=== PATIENT | female | born 1950 | race Caucasian/White ===

== ENCOUNTER → 2019-04-11 | Outpatient (CLI) | payer MEDICARE, OTHER ==
[~2019-04-11] MED LIST: BIOTIN PO; CALCIUM CITRAT1 EAC3 PO; LEVAQUIN500 MG PO; LISINOPRIL10 MG PO; MULTI-VITAMIN1 EACH PO; OCUVITE TABLET1 EAC1 PO; OMEPRAZOLE40 MG PO
--- NOTE | 2019-04-11 11:05 | Diagnostic Imaging Report ---
EXAM: CT Abdomen and Pelvis WITHOUT intravenous contrast INDICATION: Renal calculus COMPARISON: None. TECHNIQUE: Abdomen and pelvis were scanned utilizing a multidetector helical scanner from the lung base to the pubic symphysis without administration of IV contrast. Coronal and sagittal reformations were obtained. IV CONTRAST: None ORAL CONTRAST: None COMPLICATIONS: None RADIATION DOSE: Total DLP: 478.8 mGy*cm Dose modulation, iterative reconstruction, and/or weight based adjustment of the mA/kV was utilized to reduce the radiation dose to as low as reasonably achievable. FINDINGS: LOWER THORAX: Lingular calcified granuloma. Minimal bibasilar dependent subsegmental atelectasis. HEPATOBILIARY: No focal liver lesion. Status post cholecystectomy. SPLEEN: No splenomegaly. PANCREAS: No focal masses or ductal dilatation. ADRENALS: No adrenal nodules. KIDNEYS/URETERS: No hydronephrosis, stones, or solid mass lesions. PELVIC ORGANS/BLADDER: Hysterectomy. PERITONEUM / RETROPERITONEUM: No free air or fluid. LYMPH NODES: No lymphadenopathy. VESSELS: Minimal scattered atherosclerotic calcifications of the nonaneurysmal abdominal aorta and major branches. GI TRACT: Status post gastric bypass. No abnormal bowel thickening. No bowel obstruction. BONES AND SOFT TISSUES: No acute osseous injury. No suspicious lytic or blastic lesions. Mild diffuse osteopenia. Degenerative changes of the visualized spine. Grade 1 retrolisthesis at T12-L1, L1-2 and L2-3. Grade 1 anterolisthesis at L4-5. Status post mesh repair of ventral hernia. IMPRESSION: No acute findings in the abdomen or pelvis. Specifically, no renal calculi or hydronephrosis. Signed by: Rigoberto Fitzpatrick MD on 04/11/2019 11:01 AM
== END ==
LOC: CT 10:05
PROVIDERS: ATTEND Urology
DX: N20.0 Calculus of kidney (principal)
CPT/HCPCS: 74176

== ENCOUNTER 2019-04-12 10:30 | Inpatient (IN) | payer MEDICARE, OTHER ==
[2019-04-11 09:52] LABS: BASOPHILS # (AUTO) 0.1 (0.0-0.1); BASOPHILS % 0.9 % (0.0-1.0); EOSINOPHILS # (AUTO) 0.1 (0.0-0.4); EOSINOPHILS % 2.6 % (0.0-6.0); HEMATOCRIT 39.6 % (34.2-44.1); HEMOGLOBIN 12.8 g/dL (12.0-16.0); LYMPHOCYTES # (AUTO) 1.4 (1.0-3.2); LYMPHOCYTES % 25.8 % (18.0-39.1); MEAN CORPUSCULAR HEMOGLOBIN 29.8 pg (28-32); MEAN CORPUSCULAR HGB CONC 32.3 g/dL (31-35); MEAN CORPUSCULAR VOLUME 92.3 fL (81-99); MONOCYTES # (AUTO) 0.4 (0.2-0.8); MONOCYTES % 8.2 % (4.4-11.3); NEUTROPHILS # (AUTO) 3.3 (2.1-6.9); NEUTROPHILS % 62.3 % (38.7-80.0); PLATELET COUNT 185 x10e3/uL (140-360); RED BLOOD COUNT 4.29 x10e6/uL (3.6-5.1); RED CELL DISTRIBUTION WIDTH 13.7 % (11.7-14.4)
[2019-04-11 10:08] LABS: ANION GAP 11.8 mmol/L (8-16); BLOOD UREA NITROGEN 14 mg/dL (7-26); BUN/CREATININE RATIO 20 (6-25); CALCIUM 9.4 mg/dL (8.4-10.2); CARBON DIOXIDE 26 mmol/L (22-29); CHLORIDE 110 mmol/L (98-107); CREATININE, SERUM 0.69 mg/dL (0.57-1.11); EST GLOMERULAR FILTRATION RATE > 60 ML/MIN (60-); GLUCOSE 70 mg/dL (74-118); POTASSIUM 3.8 mmol/L (3.5-5.1); SODIUM 144 mmol/L (136-145)
--- NOTE | 2019-04-11 10:16 | Diagnostic Imaging Report ---
EXAMINATION: CHEST 2 VIEWS INDICATION: Pre-operative COMPARISON: None FINDINGS: LINES/TUBES:None LUNGS:The lungs are well-inflated. No focal consolidation or pulmonary edema. PLEURA:No pleural effusion or pneumothorax. MEDIASTINUM:The cardiomediastinal silhouette appears normal in size and shape. BONES/SOFT TISSUES:No acute osseous injury. ABDOMEN:No free air under the diaphragm. IMPRESSION: No focal pneumonia or pulmonary edema Signed by: Rigoberto Fitzpatrick MD on 04/11/2019 10:14 AM
[~2019-04-12] VITALS: Ht 162.6 cm; Wt 76.7 kg
[2019-04-12] MEDS ORDERED: GENTAMICIN 80MG/NS 100 ML 200 ML IV ONE (10:46)
[2019-04-12] MEDS ORDERED: PIPER-TAZ 3.375 GM 50 ML ONE (10:46)
[2019-04-12] MEDS ORDERED: CLINDAMYCIN 300MG 50 ML IV ONE (10:47)
[2019-04-12] MEDS ORDERED: IOPAMIDOL 300MG/ML 50ML INFUS..BTL IV ONE (10:48)
[2019-04-12] MEDS ORDERED: B&O 60MG R/S 60 MG SUPP PR ONE (10:48)
[2019-04-12] MEDS ORDERED: LISINOPRIL10 MG PO (10:51)
[2019-04-12] MEDS ORDERED: OMEPRAZOLE40 MG PO (10:51)
[2019-04-12] MEDS ORDERED: LEVAQUIN500 MG PO (10:52)
[2019-04-12] MEDS ORDERED: BACITRACIN 50,000 UNIT VIAL ONE (10:57)
[2019-04-12] MEDS ORDERED: BUPIVACAINE 0.5%/EPI 30 ML SDV INJ ONE (10:57)
[2019-04-12] MEDS ORDERED: INDIGOTINDISULFONATE SODIUM 8 MG/ML AMP IJ ONE (10:58)
--- OUTSIDE RECORDS SUMMARY | 2019-04-12 11:08 | XMS REPORT ---
Author Author [facility] Address Unknown Phone Unavailable Care Team Providers Care Manager Card Name Role Phone MARGARETH MELISSA Unavailable Unavailable Problems This patient has no known problems. Allergies, Adverse Reactions, Alerts This patient has no known allergies or adverse reactions. Medications This patient has no known medications. Results Test Description Test Time Test Comments Text Results Atomic Results Result Comments CT ABDOMEN/PELVIS WO 2019-04-11 10:56:00 [place] [address] Patient Name: BERHANE NORWOOD MR #: [id number] : 1950 Age/Sex: 68/F Req #: [id number] Adm Physician: Ordered by: MARGARETH MELISSA MD Report #: [id number] Location: CT Room/Bed: Procedure: [id number] CT/CT ABDOMEN/PELVIS WO Exam Date: Exam Time: REPORT STATUS: Signed EXAM: CT Abdomen and Pelvis WITHOUT intravenous contrast IND ICATION: Renal calculus COMPARISON: None. TECHNIQUE: Abdomen and pelvis were scanned utilizing a multidetector helical scanner from the lung base to the pubic symphysis without administration of IV contrast. Coronal and sagittal reformations were obtained. IV CONTRAST: None ORAL CONTRAST: None COMPLICATIONS: None RADIATION DOSE: Total DLP: 478.8 mGy*cm Dose modulation, iterative reconstruction, and/or weight based adjustment of the mA/kV was utilized to reduce the radiation dose to as low as reasonably achievable. FINDINGS: LOWER THORAX: Lingular calcified granuloma. Minimal bibasilar dependent subsegmental atelectasis. HEPATOBILIARY: No focal liver lesion. Status post cholecystectomy. SPLEEN: No splenomegaly. PANCREAS: No focal masses or ductal dilatation. ADRENALS: No adrenal nodules. KIDNEYS/URETERS: No hydronephrosis, stones, or solid mass lesions. PELVIC ORGANS/BLADDER: Hysterectomy. PERITONEUM / RETROPERITONEUM: No free air or fluid. LYMPH NODES: No lymphadenopathy. VESSELS: Minimal scattered atherosclerotic calcifications of the nonaneurysmal abdominal aorta and major branches. GI TRACT: Status post gastric bypass. No abnormal bowel thickening. No bowel obstruction. BONES AND SOFT TISSUES: No acute osseous injury. No suspicious lytic or blastic lesions. Mild diffuse osteopenia. Degenerative changes of the visualized spine. Grade 1 retrolisthesis at T12-L1, L1-2 and L2-3. Grade 1 anterolisthesis at L4-5. Status post mesh repair of ventral hernia. IMPRESSION: No acute findings in the abdomen or pelvis. Specifically, no renal calculi or hydronephrosis. Signed by: Anibal Calzada MD on 04/11/2019 11:01 AM Dictated By: ANIBAL CALZADA MD 110 Transcribed By: DANA on 04/11/19 110 COPY TO: MARGARETH MELISSA MD CHEST 2 VIEWS 2019-04-11 10:06:00 [place] [address] Patient Name: BERHANE NORWOOD MR #: [id number] : 1950 Age/Sex: 68/F Req #: [id number] Adm Physician: Ordered by: MARAGRETH MELISSA MD Report #: [id number] Location: OR Room/Bed: Procedure: [id number] DX/CHEST 2 VIEWS Exam Date: 04/11/19 Exam Time: 934 REPORT STATUS: Signed EXAMINATION: CHEST 2 VIEWS INDICATION: Pre-operative COMPARISON: None FINDINGS: LINES/TUBES:None LUNGS:The lungs are well-inflated. No focal consolidation or pulmonary edema. PLEURA:No pleural effusion or pneumothorax. MEDIASTINUM:The cardiomediastinal silhouette appears normal in size and shape. BONES/SOFT TISSUES:No acute osseous injury. ABDOMEN:No free air under the diaphragm. IMPRESSION: No focal pneumonia or pulmonary edema Signed by: Anibal Calzada MD on 04/11/2019 10:14 AM Dictated By: ANIBAL CALZADA MD [id number] Transcribed By: JASON Campbell on 04/11/19 1014 COPY TO: MARGARETH MELISSA MD
[2019-04-12] MEDS ORDERED: SILVER SULFADIAZINE 50GM CREAM ONE (11:56)
[2019-04-12] MEDS ORDERED: NALOXONE HCL INJ 0.4 MG/ML AMP IV PRN (14:30)
[2019-04-12] MEDS ORDERED: MORPHINE SULFATE 1 MG/ML 30ML PCA IV PRN (14:30)
[2019-04-12] MEDS ORDERED: ONDANSETRON HCL INJ 2MG/ML 2ML 2 MG/ML VIAL IV PRN (14:30)
[2019-04-12] MEDS ORDERED: ACETAMINOPHEN/CODEINE 300MG - 30MG TAB PO PRN (14:30)
[2019-04-12] MEDS ORDERED: METOCLOPRAMIDE HCL 10 MG/2ML VIAL ONE (15:03)
[2019-04-12] MEDS ORDERED: FENTANYL CITRATE/PF 100MCG/2 ML INJ ONE ×2 (15:27→16:04)
[2019-04-12] MEDS ORDERED: MIDAZOLAM HCL 2 MG/2 ML VIAL ONE (16:04)
--- NOTE | 2019-04-12 17:03 | NUR ---
PT ARRIVED TO ROOM 113. FAMILY AT BEDSIDE. PT AWAKE, BUT DROUSY. VITAL SIGNS STABLE. WILL CONTINUE TO MONITOR.
[2019-04-12] MEDS ORDERED: ACETAMINOPHEN 1000 MG/100 ML IV PRN (18:00)
[2019-04-12] MEDS ORDERED: SUCCINYLCHOLINE CHLORIDE 20 MG/ML 10ML VIAL ONE (18:10)
[2019-04-12] MEDS ORDERED: ROCURONIUM BROMIDE 10 MG/ML 5ML VIAL ONE (18:10)
[2019-04-12] MEDS ORDERED: ONDANSETRON HCL INJ 2MG/ML 2ML 2 MG/ML VIAL ONE (18:10)
[2019-04-12] MEDS ORDERED: DEXAMETHASONE SOD PHOS INJ 4 MG/ML VIAL ONE (18:10)
[2019-04-12] MEDS ORDERED: SEVOFLURANE INHAL SOLN 250 ML PEN BTL ONE (18:10)
[2019-04-12] MEDS ORDERED: LIDOCAINE HCL 2% JELLY 5 ML TUBE ONE (18:10)
[2019-04-12] MEDS ORDERED: PROPOFOL IV EMULSION 10 MG/ML 20 ML VIAL ONE (18:10)
[2019-04-12] MEDS ORDERED: LIDOCAINE HCL 2% LOCAL INJ 5 ML SDV VIAL INJ ONE (18:10)
--- NOTE | 2019-04-12 19:25 | NUR ---
BEDSIDE SHIFT REPORT GIVEN TO ONCOMING RN. PT RESTING COMFORTABLY IN BED, EASILY AROUSED. NO SIGNS OF DISTRESS.
[2019-04-12] MEDS ORDERED: CALCIUM CITRAT1 EAC3 PO (19:34)
[2019-04-12] MEDS: DOCUSATE SODIUM 100 MG CAP PO SCH (19:53)
[2019-04-12] MEDS: D5.45%NS/KCL 20MEQ 1,000 ML IV SCH ×2 (19:53→22:22)
[2019-04-12 19:56] VITALS: BP 112/70
[2019-04-12 20:00] VITALS: BP 105/68
[2019-04-12] MEDS ORDERED: SILVER SULFADIAZINE 50GM CREAM TOP ONE (21:00)
[2019-04-12] MEDS: PIPER-TAZ 3.375 GM 50 ML IV SCH (22:52)
--- NOTE | 2019-04-12 22:56 | NUR ---
SPOKE TO DR. ALEXANDER AT THIS TIME REGARDING PRN KAYLI. SAID CHANGE FREQUENCY TO Q4H PRN
--- NOTE | 2019-04-12 23:15 | NUR ---
PAGED DR. MELISSA ABOUT NOT BEING ABLE TO REINSERT VAGINAL PACKING. AWAITING CALL BACK
[2019-04-12 23:18] VITALS: BP 105/68
--- NOTE | 2019-04-12 23:33 | NUR ---
REPAGED DR. MELISSA. AWAITING CALL BACK
[2019-04-13] VITALS (8 sets, daily range): BP systolic 83–102; BP diastolic 42–52
[2019-04-13] MEDS: ONDANSETRON HCL INJ 2MG/ML 2ML 2 MG/ML VIAL IV PRN ×4 (01:29→20:00)
[2019-04-13] MEDS ORDERED: OCUVITE TABLET1 EAC1 PO (03:53)
[2019-04-13] MEDS ORDERED: BIOTIN PO (03:53)
[2019-04-13] MEDS ORDERED: MULTI-VITAMIN1 EACH PO (03:53)
[2019-04-13] MEDS: D5.45%NS/KCL 20MEQ 1,000 ML IV SCH (05:40)
[2019-04-13 05:54] LABS: BASOPHILS % 0.3 % (0.0-1.0); EOSINOPHILS % 0.1 % (0.0-6.0); HEMATOCRIT 24.7 % (34.2-44.1); HEMOGLOBIN 7.9 g/dL (12.0-16.0); LYMPHOCYTES # (AUTO) 1.6 (1.0-3.2); LYMPHOCYTES % 21.1 % (18.0-39.1); MEAN CORPUSCULAR HEMOGLOBIN 30.4 pg (28-32); MONOCYTES # (AUTO) 0.9 (0.2-0.8); MONOCYTES % 11.3 % (4.4-11.3); NEUTROPHILS # (AUTO) 5.2 (2.1-6.9); NEUTROPHILS % 66.8 % (38.7-80.0); PLATELET COUNT 175 x10e3/uL (140-360)
[2019-04-13] MEDS: PIPER-TAZ 3.375 GM 50 ML IV SCH ×3 (06:13→22:02)
[2019-04-13 06:17] LABS: ANION GAP 10.6 mmol/L (8-16); BLOOD UREA NITROGEN 13 mg/dL (7-26); BUN/CREATININE RATIO 15 (6-25); CARBON DIOXIDE 24 mmol/L (22-29); CHLORIDE 107 mmol/L (98-107); CREATININE, SERUM 0.86 mg/dL (0.57-1.11); EST GLOMERULAR FILTRATION RATE > 60 ML/MIN (60-); GLUCOSE 140 mg/dL (74-118); POTASSIUM 4.6 mmol/L (3.5-5.1); SODIUM 137 mmol/L (136-145)
--- NOTE | 2019-04-13 07:00 | NUR ---
RECEIVED PATIENT AWAKE RESTING IN BED NO S/S OF DISTRESS. BED LOW, WHEELS LOCKED, SIDE RAILS X2. CALL LIGHT IN REACH WILL CONTINUE TO MONITOR PATIENT.
[2019-04-13] MEDS: DOCUSATE SODIUM 100 MG CAP PO SCH ×2 (08:29→16:41)
[2019-04-13] MEDS ORDERED: HYDROCODONE/APAP 10MG-325MG TAB PO PRN (10:15)
[2019-04-13] MEDS ORDERED: ACETAMINOPHEN 325 MG TAB PO PRN (10:15)
[2019-04-13] MEDS: SODIUM CHLORIDE 0.9% 1000ML 1,000 ML IV SCH ×2 (11:15→21:08)
--- NOTE | 2019-04-13 12:15 | NUR ---
PATIENT A/O X3, EVEN RESPIRATIONS ON 2LNC. LUNG SOUNDS CLEAR TO AUSCULTATION. PATEL IN PLACE WITH CLEAR YELLOW URINE. LOWER ABDOMINAL DRESSING INTACT, MINIMAL DRAINING. LEFT FA 20 GAUGE IV WITH NS @ 100 CC/HR. DAUGHTER AT BEDSIDE. INCENTIVE SPIROMETER IN REACH. CALL LIGHT IN REACH WILL CONTINUE TO MONITOR PATIENT.
[2019-04-13] MEDS ORDERED: ACETAMINOPHEN/CODEINE 300MG - 30MG TAB PO PRN (15:00)
[2019-04-13] MEDS: MORPHINE SULFATE INJ 4 MG/ML INJ 1ML IV PRN (20:00)
[2019-04-14] VITALS (8 sets, daily range): BP systolic 98–125; BP diastolic 50–64
[2019-04-14] MEDS: PIPER-TAZ 3.375 GM 50 ML IV SCH ×2 (06:06→16:42)
--- NOTE | 2019-04-14 07:00 | NUR ---
RECEIVED PATIENT AWAKE RESTING IN BED NO S/S OF DISTRESS. BED LOW, WHEELS LOCKED, SIDE RAILS X2. CALL LIGHT IN REACH WILL CONTINUE TO MONITOR PATIENT.
[2019-04-14 08:07] LABS: BASOPHILS % 0.2 % (0.0-1.0); EOSINOPHILS # (AUTO) 0.2 (0.0-0.4); EOSINOPHILS % 2.8 % (0.0-6.0); LYMPHOCYTES # (AUTO) 1.3 (1.0-3.2); MEAN CORPUSCULAR HEMOGLOBIN 30.5 pg (28-32); MEAN CORPUSCULAR HGB CONC 31.6 g/dL (31-35); MEAN CORPUSCULAR VOLUME 96.7 fL (81-99); MONOCYTES # (AUTO) 0.6 (0.2-0.8); MONOCYTES % 10.8 % (4.4-11.3); NEUTROPHILS # (AUTO) 3.7 (2.1-6.9); NEUTROPHILS % 63.9 % (38.7-80.0); PLATELET COUNT 132 x10e3/uL (140-360); RED BLOOD COUNT 2.13 x10e6/uL (3.6-5.1); RED CELL DISTRIBUTION WIDTH 14.1 % (11.7-14.4)
[2019-04-14 08:18] LABS: HEMATOCRIT 20.6 % (34.2-44.1); HEMOGLOBIN 6.5 g/dL (12.0-16.0)
[2019-04-14 08:30] LABS: ANION GAP 9.9 mmol/L (8-16); BLOOD UREA NITROGEN 5 mg/dL (7-26); BUN/CREATININE RATIO 7 (6-25); CALCIUM 7.8 mg/dL (8.4-10.2); CARBON DIOXIDE 25 mmol/L (22-29); CHLORIDE 109 mmol/L (98-107); CREATININE, SERUM 0.68 mg/dL (0.57-1.11); EST GLOMERULAR FILTRATION RATE > 60 ML/MIN (60-); GLUCOSE 97 mg/dL (74-118); POTASSIUM 3.9 mmol/L (3.5-5.1); SODIUM 140 mmol/L (136-145)
[2019-04-14] MEDS: PANTOPRAZOLE SOD 40 MG TABEC PO SCH (08:51)
[2019-04-14] MEDS: DOCUSATE SODIUM 100 MG CAP PO SCH ×2 (08:51→16:42)
[2019-04-14] MEDS ORDERED: FAMOTIDINE 20 MG/2 ML VIAL IV ONE (09:00)
[2019-04-14] MEDS ORDERED: ACETAMINOPHEN 325 MG TAB PO ONE (09:00)
[2019-04-14] MEDS ORDERED: DIPHENHYDRAMINE HCL INJ 50 MG/ML VIAL IV ONE (09:00)
[2019-04-14] MEDS ORDERED: LISINOPRIL 10 MG TAB PO SCH (09:00)
[2019-04-14] MEDS ORDERED: SODIUM CHLORIDE 0.9% 250ML 250 ML IV ONE (09:00)
--- NOTE | 2019-04-14 09:18 | NUR ---
SPOKE WITH DR. MELISSA REGARDING HEMOGLOBIN 6.5. NEW ORDER FOR STAT CT OF ABD/PELVIS WITHOUT CONTRAST, CLEAR LIQUID DIET, AND 500 CC BOLUS OF NS. NEW ORDERS IMPLEMENTED.
--- NOTE | 2019-04-14 11:37 | NUR ---
PATIENT TRANSPORTED TO CT VIA BED IN STABLE CONDITION.
--- NOTE | 2019-04-14 11:56 | NUR ---
PATIENT BACK FROM CT AT THIS TIME IN STABLE CONDITION.
[2019-04-14] MEDS: ONDANSETRON HCL INJ 2MG/ML 2ML 2 MG/ML VIAL IV PRN ×2 (12:24→17:41)
[2019-04-14] MEDS: MORPHINE SULFATE INJ 4 MG/ML INJ 1ML IV PRN ×2 (12:24→17:41)
--- NOTE | 2019-04-14 12:35 | NUR ---
PATIENT COMPLAINING OF HEAVINESS ON HER CHEST. VITAL SIGNS- BP: 129/60, HR: 73, O2: 99% 2LNC. STAT EKG ORDER PLACED PER PROTOCOL- NORMAL SINUS RHYTHM 65. PATIENT STATES HEAVINESS IS RELIEVED. CALL LIGHT IN REACH WILL CONTINUE TO MONITOR PATIENT.
--- NOTE | 2019-04-14 13:03 | Diagnostic Imaging Report ---
EXAM: CT Abdomen and Pelvis WITHOUT contrast INDICATION: Anemia. COMPARISON: CT abdomen/pelvis 04/11/2019. TECHNIQUE: Abdomen and pelvis were scanned utilizing a multidetector helical scanner from the lung base to the pubic symphysis without administration of IV contrast. Absence of intravenous contrast decreases sensitivity for detection of focal lesions and vascular pathology. Coronal and sagittal reformations were obtained. Routine protocol was performed. IV CONTRAST: None. ORAL CONTRAST: None. RADIATION DOSE: Total DLP: 621.2 mGy*cm Estimated effective dose: (DLP x 0.015 x size factor) mSv COMPLICATIONS: None FINDINGS: LOWER THORAX: Lingular calcified granuloma. Trace left pleural effusion with patchy dependent opacities. Relative hypoattenuation of the intracardiac blood, suggestive of anemia. HEPATOBILIARY: No focal liver lesion. Status post cholecystectomy. Mild prominence of the intrahepatic and extrahepatic bile ducts, likely post cholecystectomy reservoir effect. SPLEEN: No splenomegaly. PANCREAS: No focal masses or ductal dilatation. ADRENALS: No adrenal nodules. KIDNEYS/URETERS: No hydronephrosis, stones, or solid mass lesions. PELVIC ORGANS/BLADDER: Hysterectomy. Kc catheter terminates in a decompressed bladder. Air within the bladder, likely echogenic. PERITONEUM / RETROPERITONEUM: There is a dependent hemoperitoneum (series 2, image 69; 59 HU) within the pelvis, measuring up to 13.5 x 7.2 cm on the right, and extending across midline. Punctate focus of free air in the right hemipelvis, adjacent to the bladder on series 2, image 72. LYMPH NODES: No lymphadenopathy. VESSELS: Minimal scattered atherosclerotic calcifications of the nonaneurysmal abdominal aorta and major branches. GI TRACT: Status post gastric bypass. No abnormal bowel thickening. No bowel obstruction. BONES AND SOFT TISSUES: Diffuse soft tissue edema within the lower anterior abdominal and pelvic wall. No acute osseous injury. No suspicious lytic or blastic lesions. Mild diffuse osteopenia. Degenerative changes of the visualized spine. Status post mesh repair of ventral hernia. IMPRESSION: Hemoperitoneum, layering dependently in the pelvis, predominantly in the right hemipelvis, measuring up to 13.5 cm, extending across midline. The above urgent findings were discussed with ZION Barber on 04/14/2019 at 12:58 PM, who responded indicating that the communication was understood, and will notify Dr. Pickard. Signed by: Dr. Jamie Dickey MD on 04/14/2019 1:01 PM
[2019-04-14] MEDS ORDERED: FAMOTIDINE 20 MG/2 ML VIAL IV NR (13:45)
[2019-04-14] MEDS ORDERED: DIPHENHYDRAMINE HCL INJ 50 MG/ML VIAL IV NR (13:45)
[2019-04-14] MEDS ORDERED: ACETAMINOPHEN 325 MG TAB PO NR (13:45)
[2019-04-14] MEDS ORDERED: SODIUM CHLORIDE 0.9% 250ML 250 ML ONE ×2 (13:45→20:21)
--- NOTE | 2019-04-14 13:50 | NUR ---
BLOOD TRANSFUSION STARTED. PATIENT TOLERATING WELL, VITAL SIGNS STABLE.
[2019-04-14] MEDS ORDERED: SODIUM CHLORIDE 0.9% 250ML 250 ML IV NR (14:30)
--- NOTE | 2019-04-14 16:16 | NUR ---
FIRST UNIT OF BLOOD COMPLETE. VS STABLE, PATIENT TOLERATED WELL.
[2019-04-14] MEDS: FUROSEMIDE INJ 10 MG/ML 2 ML VIAL IV SCH (16:42)
[2019-04-14] MEDS: DIPHENHYDRAMINE HCL 25 MG CAP PO PRN (18:34)
--- NOTE | 2019-04-14 23:50 | NUR ---
2ND UNIT OF BLOOD TRANSFUSION COMPLETE. VITAL SIGNS STABLE. NO ADVERSE REACTION NOTED.
[2019-04-15] VITALS (8 sets, daily range): BP systolic 108–140; BP diastolic 58–72
[2019-04-15] MEDS: ONDANSETRON HCL INJ 2MG/ML 2ML 2 MG/ML VIAL IV PRN ×5 (00:20→23:19)
[2019-04-15] MEDS: MORPHINE SULFATE INJ 4 MG/ML INJ 1ML IV PRN ×5 (00:20→23:34)
[2019-04-15] MEDS: FUROSEMIDE INJ 10 MG/ML 2 ML VIAL IV SCH (00:50)
[2019-04-15] MEDS: PIPER-TAZ 3.375 GM 50 ML IV SCH (01:00)
[2019-04-15 02:23] LABS: BASOPHILS % 0.4 % (0.0-1.0); EOSINOPHILS # (AUTO) 0.2 (0.0-0.4); EOSINOPHILS % 3.8 % (0.0-6.0); HEMOGLOBIN 9.1 g/dL (12.0-16.0); LYMPHOCYTES # (AUTO) 1.2 (1.0-3.2); LYMPHOCYTES % 21.9 % (18.0-39.1); MEAN CORPUSCULAR HEMOGLOBIN 30.4 pg (28-32); MEAN CORPUSCULAR HGB CONC 32.5 g/dL (31-35); MONOCYTES # (AUTO) 0.5 (0.2-0.8); MONOCYTES % 8.5 % (4.4-11.3); NEUTROPHILS # (AUTO) 3.6 (2.1-6.9); PLATELET COUNT 127 x10e3/uL (140-360); RED BLOOD COUNT 2.99 x10e6/uL (3.6-5.1)
[2019-04-15 02:24] LABS: MEAN CORPUSCULAR VOLUME 93.6 fL (81-99)
[2019-04-15 02:43] LABS: ALANINE AMINOTRANSFERASE 47 IU/L (0-55); ALBUMIN/GLOBULIN RATIO 1.2 (0.8-2.0); ALKALINE PHOSPHATASE 150 IU/L (40-150); ANION GAP 11.5 mmol/L (8-16); BLOOD UREA NITROGEN < 5 mg/dL (7-26); CALCIUM 8.5 mg/dL (8.4-10.2); CARBON DIOXIDE 28 mmol/L (22-29); CHLORIDE 104 mmol/L (98-107); CREATININE, SERUM 0.64 mg/dL (0.57-1.11); EST GLOMERULAR FILTRATION RATE > 60 ML/MIN (60-); GLUCOSE 100 mg/dL (74-118); MAGNESIUM 1.6 MG/DL (1.3-2.1); POTASSIUM 3.5 mmol/L (3.5-5.1); SODIUM 140 mmol/L (136-145)
[2019-04-15 02:50] LABS: BUN/CREATININE RATIO 8 (6-25)
[2019-04-15] MEDS: DIPHENHYDRAMINE HCL 25 MG CAP PO PRN ×5 (03:35→23:19)
--- NOTE | 2019-04-15 06:24 | NUR ---
SPOKE TO DR. MELISSA REGARDING HGB READING 9.1, NO NEW ORDERS.
--- NOTE | 2019-04-15 07:10 | NUR ---
RECEIVED BEDSIDE SHIFT REPORT FROM ZION PATEL. PATIENT RESTING AT THIS TIME, DENIES PAIN AND DISCOMFORT AT THIS TIME. CALL LIGHT WITHIN REACH.
[2019-04-15] MEDS: PANTOPRAZOLE SOD 40 MG TABEC PO SCH (08:35)
[2019-04-15] MEDS: DOCUSATE SODIUM 100 MG CAP PO SCH ×2 (08:35→16:09)
--- NOTE | 2019-04-15 08:45 | NUR ---
DR. MELISSA AT BEDSIDE, NOTIFIED OF RASH TO BACK, CHEST, ARMS, AND RIGHT BUTTOCK. DISCONTINUED ZOSYN. WILL CONTINUE TO MONITOR FOR FURTHER REACTIONS. DR. ALEXANDER NOTIFIED, WILL BE IN TO ASSESS PATIENT.
[2019-04-15] MEDS ORDERED: PIPER-TAZ 3.375 GM 50 ML IV SCH (09:00)
[2019-04-15] MEDS: LEVOFLOXACIN 500 MG TAB PO SCH (09:57)
--- NOTE | 2019-04-15 16:17 | NUR ---
CALLED DR. ALEXANDER REGARDING PATIENT RASH. ORDERED FOR HYDROCORTISONE CREAM TOPICAL TO BE APPLIED TWICE DAILY.
[2019-04-15] MEDS ORDERED: HYDROCORTISONE 2.5% CREAM 30GM TUBE TOP PRN (16:30)
[2019-04-15 18:24] LABS: BASOPHILS % 0.1 % (0.0-1.0); EOSINOPHILS # (AUTO) 0.2 (0.0-0.4); EOSINOPHILS % 2.9 % (0.0-6.0); HEMOGLOBIN 10.5 g/dL (12.0-16.0); LYMPHOCYTES # (AUTO) 1.4 (1.0-3.2); LYMPHOCYTES % 16.9 % (18.0-39.1); MEAN CORPUSCULAR HEMOGLOBIN 30.4 pg (28-32); MEAN CORPUSCULAR HGB CONC 32.8 g/dL (31-35); MEAN CORPUSCULAR VOLUME 92.8 fL (81-99); MONOCYTES # (AUTO) 0.6 (0.2-0.8); MONOCYTES % 7.2 % (4.4-11.3); NEUTROPHILS # (AUTO) 5.8 (2.1-6.9); NEUTROPHILS % 72.5 % (38.7-80.0); PLATELET COUNT 177 x10e3/uL (140-360); RED BLOOD COUNT 3.45 x10e6/uL (3.6-5.1); RED CELL DISTRIBUTION WIDTH 13.8 % (11.7-14.4)
[2019-04-16] VITALS (8 sets, daily range): BP systolic 102–135; BP diastolic 52–80
--- NOTE | 2019-04-16 02:17 | NUR ---
NEW IV STARTED TO LEFT AC#20G.PAIN MEDICATION GIVEN.HYDROCORTISONE CREAM APPLIED TO RASHES AREA.PATEL CARE GIVEN.AMBULATES WITH STAND BY ASSISTANCE.BED LOCKED AND IN LOWEST POSITION.PHONE AND CALL LIGHT WITHIN REACH.INSTRUCTED TO CALL FOR ASSISTANCE NEEDED.
[2019-04-16] MEDS: ONDANSETRON HCL INJ 2MG/ML 2ML 2 MG/ML VIAL IV PRN ×4 (04:30→20:41)
[2019-04-16] MEDS: MORPHINE SULFATE INJ 4 MG/ML INJ 1ML IV PRN ×4 (04:32→20:41)
[2019-04-16] MEDS: DIPHENHYDRAMINE HCL 25 MG CAP PO PRN (04:43)
[2019-04-16 06:06] LABS: BASOPHILS % 0.3 % (0.0-1.0); EOSINOPHILS # (AUTO) 0.2 (0.0-0.4); EOSINOPHILS % 3.7 % (0.0-6.0); HEMATOCRIT 28.3 % (34.2-44.1); HEMOGLOBIN 9.1 g/dL (12.0-16.0); LYMPHOCYTES # (AUTO) 1.2 (1.0-3.2); LYMPHOCYTES % 19.3 % (18.0-39.1); MEAN CORPUSCULAR HEMOGLOBIN 30.2 pg (28-32); MEAN CORPUSCULAR HGB CONC 32.2 g/dL (31-35); MONOCYTES # (AUTO) 0.7 (0.2-0.8); MONOCYTES % 11.8 % (4.4-11.3); NEUTROPHILS # (AUTO) 4.1 (2.1-6.9); NEUTROPHILS % 64.6 % (38.7-80.0); PLATELET COUNT 163 x10e3/uL (140-360); RED BLOOD COUNT 3.01 x10e6/uL (3.6-5.1); RED CELL DISTRIBUTION WIDTH 13.6 % (11.7-14.4)
[2019-04-16 06:24] LABS: ANION GAP 11.6 mmol/L (8-16); BLOOD UREA NITROGEN 6 mg/dL (7-26); BUN/CREATININE RATIO 9 (6-25); CALCIUM 8.5 mg/dL (8.4-10.2); CARBON DIOXIDE 29 mmol/L (22-29); CHLORIDE 103 mmol/L (98-107); CREATININE, SERUM 0.65 mg/dL (0.57-1.11); EST GLOMERULAR FILTRATION RATE > 60 ML/MIN (60-); GLUCOSE 107 mg/dL (74-118); POTASSIUM 3.6 mmol/L (3.5-5.1); SODIUM 140 mmol/L (136-145)
--- NOTE | 2019-04-16 07:00 | NUR ---
BED SIDE SHIFT REPORT GIVEN TO ONCOMING RN.STABLE CONDITION.
--- NOTE | 2019-04-16 07:15 | NUR ---
RECEIVED REPORT FROM ZION GASPAR. PATIENT AWAKE AT THIS TIME, DENIES PAIN. NO VISIBLE SIGNS OF DISTRESS NOTED. CALL LIGHT WITHIN REACH.
[2019-04-16] MEDS: DOCUSATE SODIUM 100 MG CAP PO SCH ×2 (09:00→17:00)
[2019-04-16] MEDS: LEVOFLOXACIN 500 MG TAB PO SCH (10:32)
[2019-04-16] MEDS: METHYLPREDNISOLONE SOD SUCC 125 MG/2ML VIAL IV SCH ×2 (10:32→20:44)
[2019-04-16] MEDS: IRON-VITAMIN-MINERAL CAPSULE PO SCH ×2 (10:36→17:57)
[2019-04-16] MEDS: LORATADINE 10 MG TAB PO SCH (10:36)
[2019-04-16] MEDS: PANTOPRAZOLE SOD 40 MG TABEC PO SCH (10:41)
[2019-04-16] MEDS: HYDROXYZINE HCL 10 MG TAB PO SCH ×2 (13:42→17:57)
--- NOTE | 2019-04-16 19:00 | NUR ---
RECEIVED THE PATIENT IN REPORT.STABLE CONDITION.LYEING IN THE BED.PATEL DRAINING WELL. BED ALARM ON.BED LOCKED AND IN LOWEST POSITION.PHONE AND CALL LIGHT WITHIN REACH.INSTRUCTED TO CALL FOR ASSISTANCE NEEDED.
--- NOTE | 2019-04-16 20:45 | NUR ---
NEW IV STATRED TO LEFT WRIST #22 PATENT.PAIN MEDICATION GIVEN.
[2019-04-17] VITALS (8 sets, daily range): BP systolic 99–129; BP diastolic 61–75
[2019-04-17] MEDS: ONDANSETRON HCL INJ 2MG/ML 2ML 2 MG/ML VIAL IV PRN ×5 (00:45→22:40)
[2019-04-17] MEDS: MORPHINE SULFATE INJ 4 MG/ML INJ 1ML IV PRN ×5 (00:54→22:45)
--- NOTE | 2019-04-17 02:07 | NUR ---
Kc care given.resting comfortably in the bed.
[2019-04-17] MEDS: HYDROXYZINE HCL 10 MG TAB PO SCH ×3 (05:34→17:57)
[2019-04-17 05:58] LABS: BASOPHILS % 0.1 % (0.0-1.0); EOSINOPHILS # (AUTO) 0.2 (0.0-0.4); EOSINOPHILS % 1.9 % (0.0-6.0); HEMATOCRIT 28.8 % (34.2-44.1); HEMOGLOBIN 9.3 g/dL (12.0-16.0); LYMPHOCYTES # (AUTO) 0.8 (1.0-3.2); LYMPHOCYTES % 8.4 % (18.0-39.1); MEAN CORPUSCULAR HEMOGLOBIN 30.2 pg (28-32); MEAN CORPUSCULAR HGB CONC 32.3 g/dL (31-35); MEAN CORPUSCULAR VOLUME 93.5 fL (81-99); MONOCYTES # (AUTO) 0.4 (0.2-0.8); MONOCYTES % 4.8 % (4.4-11.3); NEUTROPHILS # (AUTO) 7.6 (2.1-6.9); NEUTROPHILS % 84.5 % (38.7-80.0); PLATELET COUNT 200 x10e3/uL (140-360); RED BLOOD COUNT 3.08 x10e6/uL (3.6-5.1); RED CELL DISTRIBUTION WIDTH 13.3 % (11.7-14.4)
[2019-04-17 06:15] LABS: BLOOD UREA NITROGEN 7 mg/dL (7-26); BUN/CREATININE RATIO 11 (6-25); CALCIUM 9.3 mg/dL (8.4-10.2); CARBON DIOXIDE 27 mmol/L (22-29); CHLORIDE 104 mmol/L (98-107); CREATININE, SERUM 0.62 mg/dL (0.57-1.11); EST GLOMERULAR FILTRATION RATE > 60 ML/MIN (60-); GLUCOSE 143 mg/dL (74-118); SODIUM 140 mmol/L (136-145)
--- NOTE | 2019-04-17 07:00 | NUR ---
BSSR GIVEN TO ONCOMING RN.STABLE CONDITION.
--- NOTE | 2019-04-17 07:00 | NUR ---
RECEIVED PATIENT AWAKE RESTING IN BED NO S/S OF DISTRESS. BED LOW, WHEELS LOCKED, SIDE RAILS X2. CALL LIGHT IN REACH WILL CONTINUE TO MONITOR PATIENT.
[2019-04-17] MEDS: DOCUSATE SODIUM 100 MG CAP PO SCH ×2 (09:00→17:00)
[2019-04-17] MEDS: IRON-VITAMIN-MINERAL CAPSULE PO SCH ×2 (09:07→17:57)
[2019-04-17] MEDS: METHYLPREDNISOLONE SOD SUCC 125 MG/2ML VIAL IV SCH ×3 (09:07→22:23)
[2019-04-17] MEDS: LORATADINE 10 MG TAB PO SCH (09:07)
[2019-04-17] MEDS: LEVOFLOXACIN 500 MG TAB PO SCH (09:07)
[2019-04-17] MEDS: PANTOPRAZOLE SOD 40 MG TABEC PO SCH (09:07)
--- NOTE | 2019-04-17 09:35 | NUR ---
Nutrition Screen Note RD Recommendation for Physician: -Continue current diet per MD. (small portion, low sugar meals) -Recommend post bariatric vitamin and mineral supplementation if feasible. -Protein shakes from home. Plan of Care: RD following, monitoring for tolerance and adequacy. Nutrition reason for involvement: LOS Primary Diagnose(s): Prolapse PMH: gastric bypass 2 years ago per pt Ht: 68 in Wt:169 lb BMI: 29 kg/m2 IBW: [address] Assessment: (04/17) 68 YOF admitted for prolapsed with PMH listed above. The pt was seen resting in bed, finished breakfast tray in front of her. She has her surgery on 04/12. Pt stated she has been eating. She reported no N/V after been given zofran, denied C/D/chewing or swallowing issues as well as any food allergies. She reported that she had a gastric bypass surgery 2 years ago and still follows her diet and drinks protein shakes that her is bringing in from home, offered Ensure Max, she stated she rather drink her supplements. She had no other questions or concerns. Pt has been completing 25-100% of her meals per meal assessment. Chart reviewed. Labs and meds reviewed. Will continue to monitor. Current Diet: regular Malnutrition Evaluation 04/17/19 The patient does not meet criteria for a specified degree of malnutrition at this time. Will re-evaluate at follow-up as appropriate. Diet Education Needs Assessment: Diet education not indicated. Diet Adequacy: Meeting calorie needs, Meeting protein needs Nutrition Care Level: low Signed: Gloria Miller, RD, LD
[2019-04-17 10:47] LABS: INR 0.95; PROTHROMBIN TIME 13.2 seconds (11.9-14.5)
[2019-04-17 10:48] LABS: PARTIAL THROMBOPLASTIN TIME 30.3 seconds (23.8-35.5)
[2019-04-17] MEDS ORDERED: MAGNESIUM SULFATE 2GM/50ML 100 ML IV ONE (12:00)
[2019-04-17] MEDS ORDERED: SODIUM CHLORIDE 0.9% 250ML 250 ML ONE (12:24)
[2019-04-18] VITALS (9 sets, daily range): BP systolic 115–135; BP diastolic 62–77
[2019-04-18] MEDS: ONDANSETRON HCL INJ 2MG/ML 2ML 2 MG/ML VIAL IV PRN ×4 (02:50→20:19)
[2019-04-18] MEDS: MORPHINE SULFATE INJ 4 MG/ML INJ 1ML IV PRN ×5 (02:55→20:19)
[2019-04-18] MEDS: METHYLPREDNISOLONE SOD SUCC 125 MG/2ML VIAL IV SCH ×3 (05:25→20:19)
[2019-04-18] MEDS: HYDROXYZINE HCL 10 MG TAB PO SCH ×3 (06:20→17:53)
[2019-04-18 06:44] LABS: BASOPHILS % 0.1 % (0.0-1.0); HEMATOCRIT 29.4 % (34.2-44.1); HEMOGLOBIN 9.4 g/dL (12.0-16.0); LYMPHOCYTES # (AUTO) 0.9 (1.0-3.2); LYMPHOCYTES % 7.8 % (18.0-39.1); MEAN CORPUSCULAR HEMOGLOBIN 30.4 pg (28-32); MEAN CORPUSCULAR VOLUME 95.1 fL (81-99); MONOCYTES # (AUTO) 0.7 (0.2-0.8); MONOCYTES % 5.6 % (4.4-11.3); NEUTROPHILS # (AUTO) 10.4 (2.1-6.9); NEUTROPHILS % 85.8 % (38.7-80.0); PLATELET COUNT 223 x10e3/uL (140-360); RED BLOOD COUNT 3.09 x10e6/uL (3.6-5.1); RED CELL DISTRIBUTION WIDTH 13.8 % (11.7-14.4)
--- NOTE | 2019-04-18 07:00 | NUR ---
RECEIVED PATIENT AWAKE RESTING IN BED NO S/S OF DISTRESS. BED LOW, WHEELS LOCKED, SIDE RAILS X2, CALL LIGHT WITHIN REACH WILL CONTINUE TO MONITOR PATIENT.
--- NOTE | 2019-04-18 07:00 | NUR ---
BED SIDE SHIFT REPORT GIVEN TO ONCOMING RN.STABLE CONDITION.
[2019-04-18 07:02] LABS: ALANINE AMINOTRANSFERASE 21 IU/L (0-55); ALBUMIN/GLOBULIN RATIO 1.1 (0.8-2.0); ALKALINE PHOSPHATASE 135 IU/L (40-150); BLOOD UREA NITROGEN 14 mg/dL (7-26); BUN/CREATININE RATIO 21 (6-25); CALCIUM 9.4 mg/dL (8.4-10.2); CARBON DIOXIDE 27 mmol/L (22-29); CHLORIDE 103 mmol/L (98-107); CREATININE, SERUM 0.68 mg/dL (0.57-1.11); EST GLOMERULAR FILTRATION RATE > 60 ML/MIN (60-); GLUCOSE 129 mg/dL (74-118); SODIUM 140 mmol/L (136-145)
[2019-04-18 08:22] LABS: LYMPHOCYTES % (MANUAL) 8 % (19-48); MONOCYTES % (MANUAL) 7 % (3.4-9.0); NEUTROPHILS % (MANUAL) 85 % (40-74)
[2019-04-18] MEDS: DOCUSATE SODIUM 100 MG CAP PO SCH ×2 (09:00→17:00)
[2019-04-18] MEDS: LORATADINE 10 MG TAB PO SCH (09:23)
[2019-04-18] MEDS: PANTOPRAZOLE 40 MG 10ML VIAL IV SCH (09:23)
[2019-04-18] MEDS: IRON-VITAMIN-MINERAL CAPSULE PO SCH ×2 (09:23→17:53)
--- NOTE | 2019-04-18 14:58 | NUR ---
SPOKE WITH DR. MELISSA REGARDING PATIENT COMPLAINT OF BLADDER SPASM. ORDER TO DC PATEL.
--- NOTE | 2019-04-18 15:15 | NUR ---
REMOVED PATIENTS PATEL. CATHETER TIP INTACT ON REMOVAL. PATIENT DUE TO VOID.
--- NOTE | 2019-04-18 15:58 | NUR ---
PATIENT HAS VOIDED SINCE PATEL REMOVAL.
[2019-04-19] VITALS (8 sets, daily range): BP systolic 117–141; BP diastolic 60–69
[2019-04-19 05:24] LABS: BASOPHILS % 0.1 % (0.0-1.0); HEMATOCRIT 27.2 % (34.2-44.1); HEMOGLOBIN 8.6 g/dL (12.0-16.0); LYMPHOCYTES % 11.6 % (18.0-39.1); MEAN CORPUSCULAR HEMOGLOBIN 30.1 pg (28-32); MEAN CORPUSCULAR HGB CONC 31.6 g/dL (31-35); MEAN CORPUSCULAR VOLUME 95.1 fL (81-99); MONOCYTES # (AUTO) 0.5 (0.2-0.8); MONOCYTES % 6.1 % (4.4-11.3); NEUTROPHILS # (AUTO) 7.1 (2.1-6.9); NEUTROPHILS % 80.9 % (38.7-80.0); PLATELET COUNT 225 x10e3/uL (140-360); RED BLOOD COUNT 2.86 x10e6/uL (3.6-5.1); RED CELL DISTRIBUTION WIDTH 13.9 % (11.7-14.4)
[2019-04-19 05:40] LABS: ANION GAP 11.5 mmol/L (8-16); BLOOD UREA NITROGEN 14 mg/dL (7-26); BUN/CREATININE RATIO 20 (6-25); CALCIUM 9.3 mg/dL (8.4-10.2); CARBON DIOXIDE 29 mmol/L (22-29); CHLORIDE 105 mmol/L (98-107); CREATININE, SERUM 0.69 mg/dL (0.57-1.11); EST GLOMERULAR FILTRATION RATE > 60 ML/MIN (60-); GLUCOSE 139 mg/dL (74-118); POTASSIUM 4.5 mmol/L (3.5-5.1); SODIUM 141 mmol/L (136-145)
[2019-04-19] MEDS: HYDROXYZINE HCL 10 MG TAB PO SCH ×3 (06:40→17:37)
[2019-04-19] MEDS: METHYLPREDNISOLONE SOD SUCC 125 MG/2ML VIAL IV SCH ×3 (06:40→21:02)
--- NOTE | 2019-04-19 07:00 | NUR ---
BEDSIDE SHIFT REPORT RECEIVED FROM THE LOCK OPERATOR RN. EDUCATED PT ABOUT FALL PRECAUTIONS. PT VERBALIZED UNDERSTANDING. CALL LIGHT WITH IN EASY REACH. SIDE RAILS X2. BED ALARM IS ON. PT DENIES NEEDS AT THIS TIME.
[2019-04-19 07:18] LABS: LYMPHOCYTES % (MANUAL) 12 % (19-48); MONOCYTES % (MANUAL) 8 % (3.4-9.0); NEUTROPHILS % (MANUAL) 80 % (40-74); PLATELET ESTIMATE ADEQUATE; PLATELET MORPHOLOGY COMMENT NORMAL; RBC MORPHOLOGY COMMENT NORMAL
--- NOTE | 2019-04-19 08:30 | NUR ---
PT HAS BIOPSY TODAY. PAGED DR. DIAS OFFICE TO CHECK IF PT NEEDS TO BE ON NPO FOR THE PROCEDURE.
[2019-04-19] MEDS: LORATADINE 10 MG TAB PO SCH (09:00)
[2019-04-19] MEDS: PANTOPRAZOLE 40 MG 10ML VIAL IV SCH (09:00)
[2019-04-19] MEDS: IRON-VITAMIN-MINERAL CAPSULE PO SCH ×2 (09:00→17:37)
[2019-04-19] MEDS: DOCUSATE SODIUM 100 MG CAP PO SCH ×2 (09:00→17:00)
[2019-04-19] MEDS: ONDANSETRON HCL INJ 2MG/ML 2ML 2 MG/ML VIAL IV PRN ×4 (09:40→22:00)
[2019-04-19] MEDS: MORPHINE SULFATE INJ 4 MG/ML INJ 1ML IV PRN ×4 (09:40→22:00)
[2019-04-19] MEDS ORDERED: LIDOCAINE 1% 5ML-MPF INJ NR (11:15)
--- NOTE | 2019-04-19 13:15 | NUR ---
DR. DIAS AT BEDSIDE FOR THE PROCEDURE.
--- NOTE | 2019-04-19 13:30 | NUR ---
BIOPSY SENT TO PATHOLOGY BY FILTERER PER DR. DIAS.
--- NOTE | 2019-04-19 19:00 | NUR ---
BEDSIDE SHIFT REPORT GIVEN TO THE GOVERNMENT PROFESSOR RN. PT DENIED FURTHER NEEDS.
--- NOTE | 2019-04-19 19:00 | NUR ---
Received patient from day nurse, patient is alert and oriented at this time, safety and fall precautions maintained: bed in lowest position and locked, needed items beside bed, call layton placed close to patient, patient is currently stable will continue to monitor. family at bed side.
--- NOTE | 2019-04-19 20:55 | Operative Report ---
DATE OF PROCEDURE: 04/19/2019 SURGEON: Jun Yin MD PREOPERATIVE DIAGNOSIS: Diffuse rash. POSTOPERATIVE DIAGNOSIS: Diffuse rash. PROCEDURE: Skin biopsy from left lower extremity. ADMINISTRATIVE OFFICE MANAGER: None. ANESTHESIA: Local. INDICATIONS AND FINDINGS: The patient is a 68-year-old female, developed a rash on multiple areas on her body, and request is made for skin biopsy. At surgery, skin was taken from the area of rash in the left lower extremity without difficulty. TECHNIQUE: At the patient's bedside in supine position, the left leg was prepped and draped in sterile fashion with Betadine solution. The skin and subcutaneous tissues were infiltrated with 1% lidocaine. An ellipse of skin was excised, this was about 1 cm long. The wound was then closed with interrupted sutures of 4-0 nylon. A sterile dressing was applied. The patient tolerated the procedure well. ESTIMATED BLOOD LOSS: Less than 5 mL. COMPLICATIONS: There were no complications. MD FÉLIX PisanoG/MODL /[id number]
--- NOTE | 2019-04-19 21:35 | NUR ---
patient complained of chest discomfort, Dr. Nguyen was made aware and ordered maalox prn Addendum: 04/20/19 at 0726 by Cesar Stringer RN Maalox was changed to famotidine because patient is allergic to aluminium by Dr. Nguyen
[2019-04-19] MEDS ORDERED: MAGNESIUM/ALUMINUM/SIMETHICONE 30 ML UDC PO PRN (21:45)
[2019-04-19] MEDS ORDERED: FAMOTIDINE 20 MG/2 ML VIAL IV STA (21:57)
[2019-04-20] VITALS (8 sets, daily range): BP systolic 123–148; BP diastolic 64–78
[2019-04-20] MEDS: ONDANSETRON HCL INJ 2MG/ML 2ML 2 MG/ML VIAL IV PRN ×3 (02:00→18:38)
[2019-04-20] MEDS: MORPHINE SULFATE INJ 4 MG/ML INJ 1ML IV PRN (02:00)
[2019-04-20] MEDS: HYDROXYZINE HCL 10 MG TAB PO SCH ×3 (05:22→17:02)
[2019-04-20] MEDS: METHYLPREDNISOLONE SOD SUCC 125 MG/2ML VIAL IV SCH (05:22)
--- NOTE | 2019-04-20 07:00 | NUR ---
patient endorsed to next shift for continuity of care.
--- NOTE | 2019-04-20 07:00 | NUR ---
BEDSIDE SHIFT REPORT RECEIVED FROM THE PROOFER RN. EDUCATED PT ABOUT FALL PRECAUTIONS. PT VERBALIZED UNDERSTANDING. CALL LIGHT WITH IN EASY REACH. BED IS LOW AND LOCKED. SIDE RAILS X2. PT DENIES NEEDS AT THIS TIME.
[2019-04-20] MEDS ORDERED: FAMOTIDINE 20 MG/2 ML VIAL IV SCH (09:00)
[2019-04-20] MEDS: DOCUSATE SODIUM 100 MG CAP PO SCH ×2 (09:14→17:02)
[2019-04-20] MEDS: LORATADINE 10 MG TAB PO SCH (09:14)
[2019-04-20] MEDS: IRON-VITAMIN-MINERAL CAPSULE PO SCH ×2 (09:14→17:02)
[2019-04-20] MEDS: PANTOPRAZOLE 40 MG 10ML VIAL IV SCH (09:21)
[2019-04-20] MEDS: HYDROCODONE/APAP 5MG-325MG TAB PO PRN ×3 (12:20→22:40)
[2019-04-20] MEDS: PANTOPRAZOLE SOD 40 MG TABEC PO SCH (17:02)
--- NOTE | 2019-04-20 19:00 | NUR ---
BEDSIDE SHIFT REPORT GIVEN TO THE LOADING RACK SUPERVISOR RN. PT DENIED FURTHER NEEDS.
[2019-04-20] MEDS: FAMOTIDINE 20 MG TAB PO PRN (21:56)
[2019-04-21] VITALS (8 sets, daily range): BP systolic 125–143; BP diastolic 71–87
--- NOTE | 2019-04-21 02:36 | NUR ---
PT REFUSED BED ALARM. EXPLAINED TO PT IMPORTANCE OF TURNING IT ON. PT INSIST BED ALARM TO BE OFF. CHARGE NURSE NOTIFIED.
[2019-04-21] MEDS: HYDROXYZINE HCL 10 MG TAB PO SCH ×3 (06:05→18:15)
[2019-04-21] MEDS: CALCIUM CARBONATE 500 MG CHEWABLE TABS PO PRN ×2 (06:07→22:10)
[2019-04-21 06:49] LABS: BASOPHILS % 0.2 % (0.0-1.0); EOSINOPHILS # (AUTO) 0.3 (0.0-0.4); EOSINOPHILS % 3.4 % (0.0-6.0); HEMOGLOBIN 9.9 g/dL (12.0-16.0); LYMPHOCYTES # (AUTO) 2.7 (1.0-3.2); LYMPHOCYTES % 27.7 % (18.0-39.1); MEAN CORPUSCULAR HEMOGLOBIN 30.6 pg (28-32); MEAN CORPUSCULAR HGB CONC 31.9 g/dL (31-35); MEAN CORPUSCULAR VOLUME 95.7 fL (81-99); MONOCYTES # (AUTO) 0.9 (0.2-0.8); MONOCYTES % 9.4 % (4.4-11.3); NEUTROPHILS # (AUTO) 5.6 (2.1-6.9); NEUTROPHILS % 57.5 % (38.7-80.0); PLATELET COUNT 260 x10e3/uL (140-360); RED BLOOD COUNT 3.24 x10e6/uL (3.6-5.1); RED CELL DISTRIBUTION WIDTH 14.2 % (11.7-14.4)
[2019-04-21 06:57] LABS: ANION GAP 9.8 mmol/L (8-16); BLOOD UREA NITROGEN 15 mg/dL (7-26); BUN/CREATININE RATIO 22 (6-25); CALCIUM 8.6 mg/dL (8.4-10.2); CARBON DIOXIDE 31 mmol/L (22-29); CHLORIDE 102 mmol/L (98-107); CREATININE, SERUM 0.68 mg/dL (0.57-1.11); EST GLOMERULAR FILTRATION RATE > 60 ML/MIN (60-); GLUCOSE 82 mg/dL (74-118); POTASSIUM 3.8 mmol/L (3.5-5.1); SODIUM 139 mmol/L (136-145)
[2019-04-21] MEDS: PANTOPRAZOLE SOD 40 MG TABEC PO SCH ×2 (08:23→16:04)
[2019-04-21] MEDS: PREDNISONE 20 MG TAB PO SCH (10:15)
[2019-04-21] MEDS: IRON-VITAMIN-MINERAL CAPSULE PO SCH ×2 (10:15→16:04)
[2019-04-21] MEDS: LORATADINE 10 MG TAB PO SCH (10:15)
[2019-04-21] MEDS: DOCUSATE SODIUM 100 MG CAP PO SCH ×2 (10:15→16:04)
[2019-04-21] MEDS: FAMOTIDINE 20 MG TAB PO PRN (13:02)
[2019-04-21] MEDS: HYDROCODONE/APAP 5MG-325MG TAB PO PRN ×2 (16:04→22:10)
[2019-04-21] MEDS ORDERED: TOLTERODINE TARTRATE 4 MG CAPCR PO ONE (16:30)
[2019-04-22] VITALS: BP 135/84
[2019-04-22] MEDS: FAMOTIDINE 20 MG TAB PO PRN (01:11)
[2019-04-22] MEDS: HYDROXYZINE HCL 10 MG TAB PO SCH ×2 (05:29→12:14)
[2019-04-22 05:57] VITALS: BP 143/84
[2019-04-22] MEDS: HYDROCODONE/APAP 5MG-325MG TAB PO PRN (06:02)
--- NOTE | 2019-04-22 07:00 | NUR ---
RECEIVED BEDSIDE SHIFT REPORT FROM AMANDA DONOVAN. PT DENIES NEEDS AT THIS TIME.
[2019-04-22 07:40] VITALS: BP 138/73
[2019-04-22 08:45] VITALS: BP 138/73
[2019-04-22] MEDS ORDERED: TOLTERODINE TARTRATE 4 MG CAPCR PO SCH (09:00)
[2019-04-22] MEDS: DOCUSATE SODIUM 100 MG CAP PO SCH (09:05)
[2019-04-22] MEDS: PREDNISONE 20 MG TAB PO SCH (09:05)
[2019-04-22] MEDS: PANTOPRAZOLE SOD 40 MG TABEC PO SCH (09:05)
[2019-04-22] MEDS: IRON-VITAMIN-MINERAL CAPSULE PO SCH (09:05)
[2019-04-22] MEDS: LORATADINE 10 MG TAB PO SCH (09:05)
[2019-04-22] MEDS ORDERED: ONDANSETRON HCL 4 MG ORAL DISINTEGRATING TAB PO PRN (09:45)
[2019-04-22 11:31] VITALS: BP 124/71
--- NOTE | 2019-04-23 00:30 | Discharge Summary ---
CONSULTANTS: 1. Dr. Marisel Alexander. 2. Dr. Nicolás Pickard. 3. Dr. Jun Yin. FINAL DIAGNOSES: 1. The patient is status post grade 4 cystocele with impending incontinent recurrent urinary tract infection, status post cystocele repair with graft pubovaginal sling, cystoscopy, and retrograde procedure was done by Dr. Nicolás Pickard on April 12, 2019. 2. The patient admitted subsequent to medical floor for postoperative care, complicated with excessive bleed at incisional site, status post 2 units blood transfusion. 3. Allergic reaction, could be vasculitis secondary to possible drug reaction from Zosyn antibiotic treatment. The patient is status post high-dose steroids treatment and then subsequently left lower extremity skin biopsy pending results. 4. Anemia, improving as treatment. 5. Baseline multiple chronic medical problems. DISCHARGE MEDICATIONS: 1. Resume home medication. 2. Tylenol #3 p.r.n. for pain. 3. Prednisone 10 mg daily for 14 days. 4. Hydrocortisone 2% cream, apply to rash b.i.d. 5. Claritin 10 mg daily. 6. Zofran ODT 4 mg sublingual p.r.n. 7. Atarax 25 mg q.6 p.r.n. for itching. HOSPITAL COURSE: The patient is a 68-year-old female, status post urological procedures done as mentioned above. The patient underwent cystoscopy and retrograde and also at the same time, cystocele repair with graft pubovaginal sling. The patient postoperatively was in good condition except for that the patient's hemoglobin and hematocrit dropped significantly. The patient has hemoglobin from 12.8 on 04/11/2019, down to 7.9 on 04/13/2019, and 6.5 on 04/14/2019. Subsequently, the patient did receive 2 units of blood transfusion. Since then, the patient is stable. Hemoglobin now is 9.9, hematocrit 31. The patient started to have rash bilaterally of the lower extremity, upper extremity, the trunk area, and the back area. It is a rash consistent with possible vasculitis. The patient was seen by Dr. Berumen. Skin biopsy obtained. In the meantime, the patient was on high-dose steroids. She responded well. The rash has significantly improved. It was itching, but overall stable. Medication was given to the patient. Currently, as follows. Sodium is 139, potassium 3.8, chloride 102, bicarb 33, BUN 15, creatinine 0.6, glucose 82. WBC 9.8, hemoglobin 9.9, hematocrit 31, and platelets 260. INR is 0.95, PTT 30.3. AST 20, ALT 21, alkaline phos is 135, and total bilirubin 1.0. The patient is comfortable. She is ambulatory. She has pain control. Overall, she is stable. At this time, the patient will go home. Resume home medication with a prescription as mentioned above. The patient is to follow up with Dr. Berumen and Dr. Nicolás Pickard prior to returning home in the [facility]. The patient is otherwise stable. Discussed with the patient. She is ambulatory and almost back to normal baseline. The rash has significantly improved as well. The patient is stable, discharged home today. MD AASHISH Lala/MARLYS /[id number]
--- NOTE | 2019-04-29 16:51 | Consultation ---
DATE OF CONSULTATION: 04/19/2019 HISTORY OF PRESENT ILLNESS: The patient is a 68-year-old female, who was admitted to the hospital for urologic procedure after having this done, she has developed diffuse rash. The rash has some itching, so she has been started on steroids and rash is slowly improving. Request is made for skin biopsy. PAST MEDICAL HISTORY: Significant for the recent urologic surgery. Other details are listed in chart. FAMILY HISTORY: Noncontributory. SOCIAL HISTORY: The patient is . Does not smoke cigarettes or drink alcohol. REVIEW OF SYSTEMS: As stated above. PHYSICAL EXAMINATION: GENERAL: The patient is awake and alert, there is diffuse rash, which is erythematous and macular, patchy areas on lower extremities. HEENT: Unremarkable. Sclerae are nonicteric. NECK: No masses. LUNGS: Equal breath sounds are clear bilaterally. CARDIAC: Regular rate and rhythm. ABDOMEN: Soft with no tenderness. EXTREMITIES: Rash is noted in both lower extremities. Pulses are palpable. NEUROLOGIC: Grossly intact. ASSESSMENT: A 68-year-old female with rash, request is made for skin biopsy. We will do this at the bedside. Procedure was explained to the patient. Thank you for asking me to see Ms. Rodriguez. MD SARA Pisano/MARLYS /[id number]
--- NOTE | 2019-05-19 20:12 | Consultation ---
DATE OF CONSULTATION: 04/17/2019 HISTORY OF PRESENT ILLNESS: Eduarda Rodriguez is a 68-year-old white female, who had surgery for prolapse, subsequently developed a rash postsurgical as the patient's hospitalization was on 04/12/2019, subsequently referred to me for further evaluation and treatment. SOCIAL HISTORY: Noncontributory. FAMILY HISTORY: Noncontributory. ALLERGIES: 1. POLYMYXIN B. 2. BORIC ACID. 3. ACETIC ACID. 4. BACITRACIN. 5. NEOMYCIN. 6. NIFEDIPINE. REVIEW OF SYSTEMS: HEENT: Normal. CARDIAC: Normal. RESPIRATORY: Normal. GI: Normal. : Had surgery for prolapse. MUSCULOSKELETAL: Normal. SKIN AND BREASTS: Normal. NEUROENDOCRINE: Normal. MEDICATIONS: At this time: 1. Docusate. 2. Ondansetron. 3. Morphine. 4. Tylenol. 5. Protonix. 6. Lasix. 7. Levaquin. 8. Hydrocortisone. 9. Hydroxyzine. 10. Loratadine. 11. B complex. The patient was on Zosyn on 04/12, 04/13, 04/14, 04/15, and 04/16. The patient had blood, subsequently had to be transfused. The Zosyn was discontinued on 04/16. PHYSICAL EXAMINATION: GENERAL: A moderately built female, has vasculitic rash over both lower extremities, buttocks, chest, and the abdomen. No petechiae. HEART: Within normal limits. LUNGS: Clear. BREASTS: Deferred at request. RECTAL/VAGINAL: Deferred at request. IMPRESSION: 1. Status post surgery for prolapse. 2. Hemoperitoneum on 04/14/2019. 3. Anemia of blood loss from 12.8 g to 6.5 g. 4. Hypoproteinemia of 5.5. 5. Hypoalbuminemia of 3.0. 6. Hypocalcemia of 7.8. 7. Hypomagnesemia of 1.6. 8. History of gastric bypass in the past. PLAN, COMMENTS, AND SUGGESTIONS: Suggest PT, PTT, and fibrinogen level. Suggest extremely high dose of steroids. Discontinue all antibiotics. The patient's INR was 0.9. The patient had a stable CBC on 04/18 with a hemoglobin of 9.4. Skin biopsy was suggested, however, a little bit late as on an emergency basis, the patient had to be given high doses of steroids. The patient was taken off Solu-Medrol on 04/20. Prednisone was started. The patient's vasculitic lesions were less prominent and the patient had a decent CBC of 9.9 on 04/21. Subsequently, the patient was discharged by the attending physician. I will be more than happy to follow this patient as outpatient. I am awaiting the biopsy of the skin report, however, this may not represent the clinical judgment as the biopsy could not be done at the time of the vasculitic lesions. Marisel Alexander MD MAQ/MODL /[id number]
--- NOTE | 2019-05-26 18:41 | Operative Report ---
DATE OF PROCEDURE: 04/12/2019 SURGEON: Nicolás Pickard MD PREOPERATIVE DIAGNOSES: 1. Stress incontinence. 2. Grade 4 cystocele. 3. Urinary tract infections. 4. Microscopic hematuria. POSTOPERATIVE DIAGNOSES: 1. Stress incontinence. 2. Grade 4 cystocele. 3. Urinary tract infections. 4. Microscopic hematuria. OPERATIONS PERFORMED: 1. Cystocele repair. 2. Utilization of a graft in cystocele repair. 3. Pubovaginal sling utilizing homograft. 4. Cystourethroscopy with bilateral ureteral catheterization and retrograde ureteropyelography (separate procedure performed for the urinary tract infections and microhematuria). 5. Interpretation of retrograde ureteropyelography. RING MAKER: Roxi Pickard MD COMPLICATIONS: None. CLINICAL SUMMARY: Eduarda Rodriguez is a 68-year-old woman with severe prolapse and stress incontinence. She has had microhematuria and urinary tract infections. She is brought for repair. She is aware of the risks of bleeding, infection, failure, need for additional procedures, injury to adjacent structures, and she elected to proceed. OPERATIVE PROCEDURE IN DETAIL: Informed consent was verified. Eduarda Rodriguez was properly identified, taken to the operating room, placed on the operating table in supine position. Anesthesia was uneventfully begun. The patient was then carefully gently repositioned in the dorsal lithotomy position with all pressure points well padded. Her abdomen, genitalia, and perineum were shaved, prepared and draped in usual sterile fashion. Labial stay sutures were utilized. Marcaine with epinephrine was utilized to infiltrate submucosally in the midline of the anterior vaginal wall as well as bilaterally underneath the vaginal mucosa. Midline incision was then made. Bilateral vaginal wall flaps were made. We then pierced the endopelvic fascia bilaterally taking care to stay as laterally as possible to avoid injuring the neurovascular periurethral complexes. Once the entire dissection was completed, we utilized a heavy Vicryl suture in interrupted fashion to perform a plicating type of cystocele repair from the cephalad most extent of the anterior vaginal dissection to the bladder neck region. This resulted in complete reduction of the patient's severe cystocele. A graft of fascia arline was cut to shape. It was then hydrated in antibiotic irrigant and a heavy PDS suture was then placed in a helical fashion through each end of the graft. The bladder was drained with a Kc catheter. We then utilized the Coderwall needle system first on the left side then on the right side. We hugged the posterior surface of the pubis and then pierced through the abdominal wall then dragged it with one pair of PDS suture strands with the needle on each side. We then utilized a 3-0 chromic suture to secure the graft to support the cystocele repair. We then utilized chromic suture to secure the distal portion of the graft to the distal most dissection of the urethra thus completing the pubovaginal sling. We then utilized the Coderwall lateral suture passer to take one strand of each PDS suture and tunneled it subcutaneously suprapubically to join its contralateral counterpart. The knots were then allowed to fall deep within the suprapubic fat pad thus ensuring a non-lifting, non-constricting pubovaginal sling. Marcaine with epinephrine was utilized to infiltrate circumferentially around the stab wounds suprapubically and after copiously irrigating with antibiotic irrigant, those incisions were approximated with 4-0 Monocryl in simple interrupted subcuticular fashion. The vaginal mucosa was then trimmed and approximated with heavy Vicryl suture in interrupted fashion. The Kc catheter was then withdrawn. Cystoscopy was then performed. Panendoscopy of the bladder revealed no suspicious mucosal lesions, no tumors, no stones, trabeculations were noted. Ureteral catheter was used to cannulate each ureter and retrograde ureteropyelography was performed. Interpretation of retrograde ureteropyelography contrast was instilled in retrograde fashion bilaterally. There were no tumors, no stones, no diverticula. Unobstructed drainage was observed bilaterally fluoroscopically. There were numerous metallic structures consistent with the patient's previous procedures. The cystoscope was withdrawn. Kc catheter was placed. Vaginal packing was placed. Labial stay sutures were removed. Sterile dressings were applied to the suprapubic region. The patient was then uneventfully reversed from anesthesia and taken to the recovery room in stable condition. We will proceed with routine postoperative care and of course ongoing urological followup. There were no complications to the procedure. The patient tolerated the procedure well. Sponge, needle, and instrument counts were correct x2 at the end of the case. Estimated blood loss was minimal. Nicolás Pickard MD OH/MODL /[id number]
== END 2019-04-22 14:55 | disposition home or self-care (01) | DRG 748 ==
LOC: OR 10:30 → PACU V 14:25 → MED/SURG 17:04
PROVIDERS: ADMIT Internal Medicine; ATTEND Internal Medicine
PROC: 0TSD0ZZ Reposition Urethra, Open Approach (ICD-10-PCS; 2019-04-12)
PROC: BT141ZZ Fluoroscopy of Kidneys, Ureters and Bladder using Low Osmolar Contrast (ICD-10-PCS; 2019-04-12)
PROC: 0JUC0KZ Supplement of Pelvic Region Subcutaneous Tissue and Fascia with Nonautologous Tissue Substitute, Open Approach (ICD-10-PCS; principal; 2019-04-12 12:19)
PROC: 30233N1 Transfusion of Nonautologous Red Blood Cells into Peripheral Vein, Percutaneous Approach (ICD-10-PCS; 2019-04-14)
PROC: 0HBLXZX Excision of Left Lower Leg Skin, External Approach, Diagnostic (ICD-10-PCS; 2019-04-19)
DX: N81.12 Cystocele, lateral (principal); K66.1 Hemoperitoneum; D62 Acute posthemorrhagic anemia; N39.0 Urinary tract infection, site not specified; N99.820 Postprocedural hemorrhage of a genitourinary system organ or structure following a genitourinary system procedure; D68.9 Coagulation defect, unspecified; N39.3 Stress incontinence (female) (male); R31.29 Other microscopic hematuria; Z98.84 Bariatric surgery status; E83.42 Hypomagnesemia; E83.51 Hypocalcemia; E88.09 Other disorders of plasma-protein metabolism, not elsewhere classified; E77.8 Other disorders of glycoprotein metabolism; T36.0X5A Adverse effect of penicillins, initial encounter; L95.8 Other vasculitis limited to the skin; G47.33 Obstructive sleep apnea (adult) (pediatric); R50.82 Postprocedural fever
CPT/HCPCS: 36415; 71046; 74176; 74420; 80048; 80053; 83735; 83970; 84550; 85025; 85384; 85610; 85730; 86021; 86850; 86900; 86920; 88305; 88312; 93005; 97139; C1752; C1758; J0330; J1100; J1200; J1580; J1940; J2001; J2250; J2270; J2405; J2543; J2765; J2930; J3010; J3410; J3475; J7030; J7050; J7512; P9016

== ENCOUNTER 2019-05-03 10:36 | Emergency (ER) | payer MEDICARE, OTHER ==
[~2019-05-03] VITALS: Ht 162.6 cm; Wt 76.7 kg
[2019-05-03 11:00] LABS: BASOPHILS # (AUTO) 0.1 (0.0-0.1); BASOPHILS % 0.9 % (0.0-1.0); EOSINOPHILS # (AUTO) 0.2 (0.0-0.4); EOSINOPHILS % 2.9 % (0.0-6.0); HEMATOCRIT 34.3 % (34.2-44.1); HEMOGLOBIN 10.7 g/dL (12.0-16.0); LYMPHOCYTES % 15.9 % (18.0-39.1); MEAN CORPUSCULAR HEMOGLOBIN 30.7 pg (28-32); MEAN CORPUSCULAR HGB CONC 31.2 g/dL (31-35); MEAN CORPUSCULAR VOLUME 98.3 fL (81-99); MONOCYTES # (AUTO) 0.5 (0.2-0.8); MONOCYTES % 6.9 % (4.4-11.3); NEUTROPHILS # (AUTO) 4.7 (2.1-6.9); NEUTROPHILS % 72.9 % (38.7-80.0); PLATELET COUNT 197 x10e3/uL (140-360); RED BLOOD COUNT 3.49 x10e6/uL (3.6-5.1); RED CELL DISTRIBUTION WIDTH 15.2 % (11.7-14.4)
[2019-05-03 11:15] LABS: INR 0.95; PROTHROMBIN TIME 13.2 seconds (11.9-14.5)
[2019-05-03 11:16] LABS: PARTIAL THROMBOPLASTIN TIME 28.1 seconds (23.8-35.5)
[2019-05-03 11:25] LABS: ALANINE AMINOTRANSFERASE 20 IU/L (0-55); ALBUMIN 3.2 g/dL (3.5-5.0); ALBUMIN/GLOBULIN RATIO 1.2 (0.8-2.0); ALKALINE PHOSPHATASE 139 IU/L (40-150); ANION GAP 9.4 mmol/L (8-16); BLOOD UREA NITROGEN 9 mg/dL (7-26); BUN/CREATININE RATIO 14 (6-25); CALCIUM 8.5 mg/dL (8.4-10.2); CARBON DIOXIDE 26 mmol/L (22-29); CHLORIDE 109 mmol/L (98-107); CREATININE, SERUM 0.64 mg/dL (0.57-1.11); EST GLOMERULAR FILTRATION RATE > 60 ML/MIN (60-); GLUCOSE 80 mg/dL (74-118); POTASSIUM 3.4 mmol/L (3.5-5.1); SODIUM 141 mmol/L (136-145)
[2019-05-03] MEDS ORDERED: IOPAMIDOL 370 MG/ML 200 ML INFUS..BTL INJ ONE (12:51)
[2019-05-03] MEDS ORDERED: SODIUM CHLORIDE 0.9% 50ML 50 ML ONE (12:51)
--- NOTE | 2019-05-03 13:18 | Diagnostic Imaging Report ---
EXAM: CT Abdomen and Pelvis WITH intravenous contrast INDICATION: Postoperative hematoma COMPARISON: CT abdomen and pelvis of 04/14/2019 TECHNIQUE: Abdomen and pelvis were scanned utilizing a multidetector helical scanner from the lung base to the pubic symphysis after administration of IV contrast. Coronal and sagittal reformations were obtained. Routine protocol was performed. Scan was performed during portal venous phase. IV CONTRAST: 100mL of Isovue 370 ORAL CONTRAST: None RADIATION DOSE: Total DLP: 610.1 mGy*cm Dose modulation, iterative reconstruction, and/or weight based adjustment of the mA/kV was utilized to reduce the radiation dose to as low as reasonably achievable. FINDINGS: LOWER THORAX: Bibasilar dependent subsegmental atelectasis. Lingular calcified granuloma. HEPATOBILIARY: No focal liver lesions. Mild intrahepatic biliary ductal dilation. Status post cholecystectomy. SPLEEN: No splenomegaly. PANCREAS: No focal masses or ductal dilatation. ADRENALS: No adrenal nodules. KIDNEYS/URETERS: No hydronephrosis, stones, or solid mass lesions. PELVIC ORGANS/BLADDER: Again seen is a right pelvic hematoma measuring 13.0 x 8.3 cm, slightly increased in size compared to the prior study at which point it measured 11.4 x 7.2 cm (today's measurement). The contents of the hematoma are intervally decreased in density, now measuring 33 Hounsfield units compared to 59 Hounsfield units previously. This likely represents interval evolution of internal blood products. No evidence of new high density material within the hematoma to suggest continued extravasation. The hematoma exerts mass effect upon the right lateral aspect of the bladder. More inferiorly, there appears to be continuity between the hematoma and the vagina, which contains fluid which is equal density to the contents of the hematoma. PERITONEUM / RETROPERITONEUM: No free air or fluid. LYMPH NODES: No lymphadenopathy. VESSELS: Moderate scattered atherosclerotic calcifications of the nonaneurysmal abdominal aorta and major branches. GI TRACT: No abnormal bowel thickening. No bowel obstruction. Status post appendectomy. BONES AND SOFT TISSUES: Status post anterior abdominal hernia mesh repair. IMPRESSION: Right pelvic hematoma, slightly increased in size compared to the prior study with interval decrease in internal density consistent with evolution of blood products. No evidence of new high density material to suggest continued active extravasation. Along the inferomedial medial aspect of the hematoma, there appears to be continuity with the vagina which contains fluid equal in density to the contents of the hematoma. This could explain the patient's recent symptoms of vaginal bleeding. Signed by: Rigoberto Fitzpatrick MD on 05/03/2019 1:15 PM
== END 2019-05-03 14:35 | disposition home or self-care (01) ==
LOC: ER 10:36
DX: N93.9 Abnormal uterine and vaginal bleeding, unspecified (principal)
CPT/HCPCS: 36415; 74177; 80053; 85025; 85610; 85730; 99284; Q9967

== ENCOUNTER → 2019-05-13 | Outpatient (CLI) | payer MEDICARE, OTHER ==
--- NOTE | 2019-05-13 11:40 | Diagnostic Imaging Report ---
EXAM: CT Abdomen and Pelvis WITHOUT contrast INDICATION: ^[id number] ^1040 ^HIST OF URINARY CALCULUS / HEMATOM COMPARISON: CT abdomen pelvis 05/03/2019 TECHNIQUE: Abdomen and pelvis were scanned utilizing a multidetector helical scanner from the lung base to the pubic symphysis without administration of IV contrast. Absence of intravenous contrast decreases sensitivity for detection of focal lesions and vascular pathology. Coronal and sagittal reformations were obtained. Routine protocol was performed. IV CONTRAST: None ORAL CONTRAST: None COMPLICATIONS: None RADIATION DOSE: Total DLP: 502 mGy*cm Estimated effective dose: (DLP x 0.015 x size factor) mSv CTDIvol has been reviewed. It is below the limits set by the Radiation Protocol Committee (RPC). Dose modulation, iterative reconstruction, and/or weight based adjustment of the mA/kV was utilized to reduce the radiation dose to as low as reasonably achievable. FINDINGS: LINES and TUBES: None. LOWER THORAX: Unremarkable HEPATOBILIARY: No focal hepatic lesions. No gross biliary ductal dilation. GALLBLADDER: Surgically absent. SPLEEN: No splenomegaly. PANCREAS: No focal masses or ductal dilatation. ADRENALS: No adrenal nodules KIDNEYS/URETERS: No hydronephrosis. No cystic or solid mass lesions. No stones. GI TRACT: No abnormal distention, wall thickening, or evidence of bowel obstruction. Gastric bypass surgical change redemonstrated. Appendix is normal. PELVIC ORGANS/BLADDER: The uterus is surgically absent. The urinary bladder is displaced to the left by the adjacent pelvic hematoma. LYMPH NODES: No lymphadenopathy. VESSELS: There is mild atherosclerotic disease in the aorta and major arterial branches. PERITONEUM / RETROPERITONEUM: Mild interval decrease in size of the mixed density right pelvic encapsulated hematoma that now measures up to 11.1 x 6.9 cm, previously 13 x 8.3 cm. High density fluid is no longer seen within the vaginal cuff. No new free intraperitoneal fluid. BONES: No acute osseous abnormality. Multilevel lumbar degenerative change. SOFT TISSUES: Stable anterior abdominal hernia repair with unchanged small residual/recurrent hernia inferiorly (image 116). IMPRESSION: Interval mild decrease in size of the mature right pelvic hematoma when compared to the previous study from 05/03/2019. No new acute abdominal or pelvic abnormality. Signed by: Dewayne Fernandez MD on 05/13/2019 11:37 AM
== END ==
LOC: CT 10:08
PROVIDERS: ATTEND Urology
DX: Z87.442 Personal history of urinary calculi (principal); K46.9 Unspecified abdominal hernia without obstruction or gangrene
CPT/HCPCS: 74176

== ENCOUNTER → 2019-05-17 | Outpatient (CLI) | payer MEDICARE, OTHER ==
[2019-05-17 08:55] LABS: BASOPHILS % 0.8 % (0.0-1.0); EOSINOPHILS # (AUTO) 0.2 (0.0-0.4); EOSINOPHILS % 4.6 % (0.0-6.0); HEMATOCRIT 36.7 % (34.2-44.1); HEMOGLOBIN 11.6 g/dL (12.0-16.0); LYMPHOCYTES # (AUTO) 1.5 (1.0-3.2); LYMPHOCYTES % 29.5 % (18.0-39.1); MEAN CORPUSCULAR HEMOGLOBIN 30.5 pg (28-32); MEAN CORPUSCULAR HGB CONC 31.6 g/dL (31-35); MEAN CORPUSCULAR VOLUME 96.6 fL (81-99); MONOCYTES # (AUTO) 0.4 (0.2-0.8); MONOCYTES % 8.1 % (4.4-11.3); NEUTROPHILS # (AUTO) 2.8 (2.1-6.9); NEUTROPHILS % 56.6 % (38.7-80.0); PLATELET COUNT 167 x10e3/uL (140-360); RED CELL DISTRIBUTION WIDTH 14.1 % (11.7-14.4)
[2019-05-17 09:14] LABS: INR 1.05; PROTHROMBIN TIME 14.3 seconds (11.9-14.5)
[2019-05-17 09:15] LABS: PARTIAL THROMBOPLASTIN TIME 34.6 seconds (23.8-35.5)
[2019-05-17 09:23] LABS: ALANINE AMINOTRANSFERASE 17 IU/L (0-55); ALBUMIN 3.4 g/dL (3.5-5.0); ALBUMIN/GLOBULIN RATIO 1.2 (0.8-2.0); ALKALINE PHOSPHATASE 147 IU/L (40-150); ANION GAP 10.9 mmol/L (8-16); BLOOD UREA NITROGEN 7 mg/dL (7-26); BUN/CREATININE RATIO 11 (6-25); CARBON DIOXIDE 25 mmol/L (22-29); CHLORIDE 111 mmol/L (98-107); CREATININE, SERUM 0.62 mg/dL (0.57-1.11); EST GLOMERULAR FILTRATION RATE > 60 ML/MIN (60-); GLUCOSE 86 mg/dL (74-118); POTASSIUM 3.9 mmol/L (3.5-5.1); SODIUM 143 mmol/L (136-145)
== END ==
LOC: LAB 08:10
PROVIDERS: ATTEND Urology
DX: D64.9 Anemia, unspecified (principal)
CPT/HCPCS: 36415; 80053; 85025; 85610; 85730